=== PATIENT | male | born 1960 | race Caucasian/White ===

== ENCOUNTER 2017-09-12 05:25 | Day surgery (SDC) | payer OTHER ==
[2017-09-11 11:09] VITALS: BMI 48.0
[~2017-09-12] VITALS: Ht 182.9 cm; Wt 159.1 kg
[~2017-09-12 05:25] MED LIST: ASPI81TA28 PO; CIPR1TAB11 PO; GLUCTAB18 PO; METR-163 PO; MISCCAP80 PO; OMEG10007 PO; OXGN; OXYC-57 PO; POLY335019 PO; PSYL48.59 PO; TRAM-10 PO; VALA1TAB31 PO
[2017-09-12] MEDS ORDERED: MELO7.5T5 PO (05:50)
[2017-09-12 05:54] VITALS: BP 131/73; PULSE 79; TEMP 36.6; O2SAT 94; Ht 182.9 cm; Wt 159.1 kg
[2017-09-12] MEDS ORDERED: LACTATED RINGER'S 1000ML 1,000 ML IV SCH (06:00)
[2017-09-12] MEDS ORDERED: CEFAZOLIN 2000MG IV PUSH 10 ML IV SCH (06:00)
[2017-09-12] MEDS ORDERED: BACITRACIN OINT 15 GM TUBE ONE (06:44)
[2017-09-12] MEDS ORDERED: BUPIVACAINE 0.5 % 5 MG/1 ML MPF 30ML VIAL ONE (06:44)
[2017-09-12] MEDS ORDERED: LIDOCAINE HCL 1% 20 ML VIAL ONE (06:44)
--- NOTE | 2017-09-12 07:01 | History & Physical Bridge Note ---
H&P Re-Evaluation Bridge Note: I have examined the patient, reviewed the History & Physical and in the interval since the performance of the History & Physical I have noted the following changes of clinical significance: No changes noted
[2017-09-12] MEDS ORDERED: CEFAZOLIN SOD 3000MG/15 ML IV PUSH IV ONE (07:08)
[2017-09-12] MEDS ORDERED: ROCURONIUM BROMIDE 10 MG/ML 5 ML VIAL IV ONE (07:11)
[2017-09-12] MEDS ORDERED: PROPOFOL IV EMULSION 10 MG/ML 20 ML VIAL IV ONE (07:11)
[2017-09-12] MEDS ORDERED: MIDAZOLAM HCL 1 MG/ML 2ML VIAL ONE (07:11)
[2017-09-12] MEDS ORDERED: LIDOCAINE HCL 2% 2 ML VIAL (20MG/ML) ONE (07:11)
[2017-09-12] MEDS ORDERED: FENTANYL CITRATE INJ 50 MCG/1 ML 2 ML VIAL ONE (07:12)
[2017-09-12] MEDS ORDERED: PROMETHAZINE HCL INJ 12.5 MG in SODIUM CHLORIDE 0.9% 50ML 50 ML IV PRN (08:30)
[2017-09-12] MEDS ORDERED: NALOXONE HCL 0.4 MG/1 ML VIAL/CARP IV PRN (08:30)
[2017-09-12] MEDS ORDERED: ATROPINE SULFATE 0.1 MG/ML 5ML SYR IV PRN (08:30)
[2017-09-12] MEDS ORDERED: ONDANSETRON INJ 2 MG/ML 2 ML VIAL IV PRN ×2 (08:30→09:15)
[2017-09-12] MEDS ORDERED: FLUMAZENIL 0.1 MG/1 ML 10 ML VIAL IV PRN (08:30)
[2017-09-12] MEDS ORDERED: EpHEDrine SULFATE INJ 50 MG/ML AMP IV PRN (08:30)
[2017-09-12] MEDS ORDERED: LABETALOL HCL IV 5 MG/ML 20ML IV PRN (08:30)
[2017-09-12] MEDS ORDERED: DEXAMETHASONE SOD INJ 4 MG/ML VIAL ONE (08:50)
[2017-09-12] MEDS ORDERED: GLYCOPYRROLATE INJ 0.2 MG/ML VIAL ONE (08:50)
[2017-09-12] MEDS ORDERED: NEOSTIGMINE METHYLSULFATE 5 MG/5 ML SYR ONE (08:50)
[2017-09-12] MEDS ORDERED: SUCCINYLCHOLINE 100MG/5ML SYR IV ONE (08:50)
[2017-09-12] MEDS ORDERED: ONDANSETRON INJ 2 MG/ML 2 ML VIAL ONE (08:50)
[2017-09-12] MEDS ORDERED: EpHEDrine SULFATE 50MG/5ML SYR ONE (08:50)
--- NOTE | 2017-09-12 08:58 | [facility] Post Operative Brief Note ---
Immediate Operative Summary Operative Date Sep 12, 2017. Pre-Operative Diagnosis chronic cholecystitis, Cholelithiasis Post-Operative Diagnosis chronic cholecystitis, Cholelithiasis Procedure(s) Performed Laparoscopic Cholecystectomy Surgeon Dr. Arriaga Sericulture Teacher Surgeon(s) Tatiana Andrea PA-C Estimated Blood Loss 5ml Findings chronic cholecystitis Fluids (cc crystalloids) 500ml Specimens A: Gallbladder Drains none Anesthesia general Complication(s) None Disposition Recovery Room / PACU
[2017-09-12] MEDS ORDERED: OXYC-57 PO (09:08)
--- NOTE | 2017-09-12 09:14 | Discharge Instructions ---
Discharge Instructions Date of Service Sep 12, 2017. Admission Reason for Admission: Cholelithiasis Discharge Discharge Diagnosis / Problem: history of gallstone pancreatitis/cholangitis, cholelithaisis Discharge Goals Goal(s): Decrease discomfort, Improve function Activity Recommendations Activity Limitations: as noted below No heavy lifting over 20 pounds for 4 weeks No strenuous activity until cleared by surgeon No submerging incisions underwater for 2 weeks (no bathing, swimming, or hot tubs) No driving while taking narcotic pain medication or until you are pain free . Instructions / Follow-Up Instructions / Follow-Up You may shower in 3 days and then remove outer dressings, sponge bath and wash hair in meantime Leave steri strips on incisions for 7 days and then remove You do not need to keep dressing on incisions unless there is drainage walking and light activity is encouraged Follow-up [address] Arriaga, please call office at [phone] to make an appointment if you do not already have one You will be given PO Percocet as needed for pain, may take extra strength Tylenol/Ibuprofen as needed for pain however do not mix Tylenol in between Percocet as Percocet already has Tylenol in it. Current Hospital Diet Patient's current hospital diet: Discharge Diet Recommended Diet: Regular Diet Procedures Procedures Performed: Laparoscopic Cholecystectomy Pending Studies Studies pending at discharge: yes List of pending studies: Gallbladder pathology to be reviewed at follow-up visit Medical Emergencies . Who to Call and When: Medical Emergencies: If at any time you feel your situation is an emergency, please call 911 immediately. . Non-Emergent Contact Non-Emergency issues call your: Primary Care Provider, Surgeon Call Non-Emergent contact if: you have a fever, temperature is above 101, your pain is not controlled, your pain is worsening, your pain is unusual for you, wound has increased drainage, wound has increased redness, wound has increased pain . "Provider Documentation" section prepared by Katherin Andrea. . VTE Core Measure Inpt VTE Proph given/why not?: SCD's [place] Drug Monitoring Program Search Results: patient reviewed within database, no issues identified
[2017-09-12] MEDS ORDERED: MoRPHine SULFATE 2 MG/ML CARP IV PRN ×2 (09:15)
[2017-09-12] MEDS ORDERED: MoRPHine SULFATE 4 MG/ML 1 ML CARP\\VIAL IV PRN (09:15)
[2017-09-12] MEDS ORDERED: OXYCODONE/ACETAMINOPHEN 5-325 TAB PO PRN ×2 (09:15)
[2017-09-12] MEDS: FENTANYL CITRATE INJ 50 MCG/1 ML 2 ML VIAL IV PRN ×2 (09:21→09:27)
--- NOTE | 2017-09-12 09:21 | OPERATIVE REPORT ---
DATE OF OPERATION: 09/12/2017 PREOPERATIVE DIAGNOSIS: Chronic cholecystitis, cholelithiasis. POSTOPERATIVE DIAGNOSIS: Same. PROCEDURE: Laparoscopic cholecystectomy. SURGEON: Dr. Lindsay Arriaga. CHANNEL SUPERVISOR: Katherin Andrea PA-C. ANESTHESIA: General. ESTIMATED BLOOD LOSS: About 5 mL. FINDINGS: Chronic cholecystitis, cholelithiasis. COMPLICATIONS: None. INDICATIONS FOR THE PROCEDURE: This is a 57-year-old gentleman who presented with pancreatitis, possible gallstone and now patient pancreatitis is recovered and now patient required to do laparoscopic cholecystectomy, possible open, possible cholangiogram. I did talk to the patient about the benefit and risk, alternate procedure. I indicated the risks may include but not limited such as bleeding, infection, injury to common bile duct, injury to bowel, myocardial infarction, DVT, even . The patient understands. He signed informed consent and I answered all questions. OPERATION AND FINDINGS: DETAILS OF PROCEDURE: We brought the patient to the OR, put the patient in the supine position. The patient received SCD on bilateral legs to prevent DVT. Also, patient received 2 grams Ancef IV for prophylactic antibiotic. The patient received general anesthesia without difficulty. The abdomen was prepped and draped in routine sterile fashion. After a timeout, I injected local anesthesia by using 1% lidocaine mixed with 0.5% Marcaine just above the umbilical. Then I made a small incision just above umbilical, opened fascia and opened peritoneum under direct vision. I put a Dorita trocar in, connected to CO2 to create pneumoperitoneum. Flow rate is 6 liter per minute. Pressure not more than 14 mmHg. Once we get a nice pneumoperitoneum, we put the camera in looked around the abdomen showing normal finding on the stomach, small bowel, large bowel and liver; however, the gallbladder showing chronic cholecystitis, gallbladder wall thickening, edema. Then, we put another 3.5 mm trocar on the right upper quadrant. Once all trocars in I put grasper in to hold the base of the gallbladder, put direction to the diaphragm and put another grasper in to hold the pouch of the gallbladder, put latter to expose the triangle of Calot. The cystic duct was identified and mobilized. I put two 5 mm metal clips on the proximal cystic duct, 1 on the distal cystic duct. I then used scissor transection the cystic duct. Then the cystic artery was identified and mobilized. I put two 5 mm metal clips on the proximal cystic arterial, 1 on the distal artery, then I used scissor transection the cystic artery. Rechecked no active bleeding, no bile leak. Then I used Bovie to take down the gallbladder from the liver bed without difficulty. Then we pulled out the gallbladder through the catch bag then we reinserted Dorita trocar in, connected to CO2 to create pneumoperitoneum. Again and looked around the abdomen shows no bile leak and no active bleeding from the liver bed and then we removed all trocar under direct vision. No active bleeding from trocar sites. The pneumoperitoneum was released. Then I closed the umbilical incision, fascial layer by using #1 Vicryl [id number] x2 and closed subcutaneous layer by using 2-0 Vicryl interrupted and closed skin by using 4-0 Vicryl continuous running. Then I closed another 3.5 mm trocar site skin only by using 4-0 Vicryl. Then we put the dressing on. The patient tolerated the procedure well. All the instrument, needle and sponge count correct x2 at the end of the case. The specimen sent to pathology and the patient transferred to recovery room in stable condition. After the procedure, I did talk to the patient's and the patient's daughter about the OR finding and procedure we did, they understand. I attest to the content of the Intraoperative Record and any orders documented therein. Any exception s are noted below.
[2017-09-12 09:50] VITALS: BP 120/65; PULSE 67; TEMP 37.3; O2SAT 93
--- NOTE | 2017-09-12 09:51 | Anesthesiology Progress Note ---
Anesthesia Post Op Note Date & Time Sep 12, 2017 at 09:50 Vital Signs Pain Intensity: 0 Vital Signs Past 12 Hours Date Time Temp Pulse Resp B/P (MAP) Pulse Ox O2 Delivery O2 Flow Rate FiO2 09/12/17 09:42 67 16 97 09/12/17 09:42 67 16 09/12/17 09:41 123/63 09/12/17 09:37 74 13 09/12/17 09:37 72 13 95 09/12/17 09:36 113/62 09/12/17 09:32 73 16 09/12/17 09:32 74 16 92 09/12/17 09:31 124/54 09/12/17 09:27 74 14 09/12/17 09:27 74 14 94 09/12/17 09:26 78 14 132/50 92 09/12/17 09:26 75 14 09/12/17 09:21 69 19 93 09/12/17 09:21 68 19 09/12/17 09:20 130/61 09/12/17 09:16 73 16 09/12/17 09:16 73 16 95 09/12/17 09:15 124/62 09/12/17 09:11 71 22 09/12/17 09:11 71 22 127/69 92 09/12/17 09:07 110/63 09/12/17 09:06 36.3 75 18 110/63 94 Oxymask 10 09/12/17 05:54 36.6 79 20 131/73 (92) 94 Room Air Notes Mental Status: alert / awake / arousable, participated in evaluation Pt Amnestic to Procedure: Yes Nausea / Vomiting: adequately controlled Pain: adequately controlled Airway Patency, RR, SpO2: stable & adequate BP & HR: stable & adequate Hydration State: stable & adequate Anesthetic Complications: no major complications apparent
[2017-09-12 10:20] VITALS: BP 135/75; PULSE 79; O2SAT 92
[2017-09-12 11:05] VITALS: BP 132/69; PULSE 77; TEMP 37; O2SAT 92
[2017-09-13] MEDS ORDERED: CEFAZOLIN SOD 2000MG/10 ML IV PUSH IV ONE (06:00)
== END 2017-09-12 11:10 | disposition home or self-care (01) ==
LOC: C.ACU 05:25
PROVIDERS: ATTEND Surgery
DX: K80.10 Calculus of gallbladder with chronic cholecystitis without obstruction (principal); F17.200 Nicotine dependence, unspecified, uncomplicated

== ENCOUNTER 2017-11-03 10:24 | Day surgery (SDC) | payer OTHER ==
[2017-10-20 08:04] VITALS: BMI 48.0
[~2017-11-03] VITALS: Ht 182.9 cm; Wt 159.1 kg
[~2017-11-03 10:24] MED LIST changes: +ATROPINE SULFATE 0.1 MG/ML 5ML SYR IV PRN; -CIPR1TAB11 PO; +EpHEDrine SULFATE INJ 50 MG/ML AMP IV PRN; +FENTANYL CITRATE INJ 50 MCG/1 ML 2 ML VIAL IV PRN; +LACTATED RINGER'S 1000ML 1,000 ML IV SCH; +MELO7.5T5 PO; -METR-163 PO; +ONDANSETRON INJ 2 MG/ML 2 ML VIAL IV PRN; -OXYC-57 PO; +PSEU1TAB67 PO
[2017-11-03] MEDS ORDERED: INDOMETHACIN 50 MG SUPP PR ONE (10:30)
[2017-11-03] MEDS ORDERED: LACTATED RINGER'S 1000ML 1,000 ML IV SCH ×2 (10:30→11:30)
[2017-11-03 10:55] VITALS: BP 139/80; PULSE 81; TEMP 36.9; O2SAT 95; Ht 182.9 cm; Wt 159.1 kg
[2017-11-03] MEDS ORDERED: FENTANYL CITRATE INJ 50 MCG/1 ML 2 ML VIAL ONE (11:34)
[2017-11-03] MEDS ORDERED: MIDAZOLAM HCL 1 MG/ML 2ML VIAL ONE (11:34)
--- NOTE | 2017-11-03 12:14 | Endo History and Physical ---
History & Physical Date of Service: Nov 03, 2017. Chief Complaint: follow-up for gallstones / cholangitis Referring Physician: History of Present Illness The patient presents today for ERCP. He had undergone an ERCP about 2 months ago after he presented with cholangitis. The patient reports that he is almost back to his usual state of health since cholecystectomy was performed. Past Medical History Arthritis, Gastrointestinal Disorder, Sleep Apnea, Other Past Surgical History Hx Cardiac Surgery: No Hx Internal Defibrillator: No Hx Pacemaker: No Hx Abdominal Surgery: Yes (EXPLORATORY LAP/REMOVAL PART BLADDER/BOWEL RESECTION-FISTULA TRACT) Hx Post-Op Nausea and Vomiting: No Hx Cancer Surgery: No Hx Thoracic Surgery: No Hx Orthopedic: Yes (LT RCR, LT/RT KNEE SCOPES) Hx Urinary Tract Surgery: No Social History Smoking Status: Light Tobacco Smoker Hx Substance Use: No Hx Alcohol Use: Yes (1-2 DRINKS/WEEK) Allergies Coded Allergies: No Known Allergies (Verified , 11/03/17) Current Medications Reported Home Medications Medications Dose Route/Sig Max Daily Dose Days Date Category Pseudoephedrine Hcl Er (Pseudoephedrine Hcl) 120 Mg Tab 1 Tab PO BID PRN 10/20/17 Reported Mobic (Meloxicam) 7.5 Mg Tab 7.5 Mg PO DAILY 09/12/17 Reported Ultram (Tramadol HCl) 50 Mg Tab 50 Mg PO Q4H PRN 09/11/17 Reported Miralax (Polyethylene Glycol 3350) 1 Pow Pow 17 Gm PO QAM 09/11/17 Reported Probiotic (Probiotic Product) 1 Cap Cap 1 Cap PO QAM 09/01/17 Reported [place]-3 (Fish Oil) 1 Ea Cap 2 Cap PO QAM 09/01/17 Reported Metamucil (Psyllium) 48.57 % Pow 2 Tbs PO QAM 09/01/17 Reported Oxygen Gas 2 Liters NA HS THROUGH CPAP MASK 06/02/14 Reported Valtrex (Valacyclovir Hcl) 1 Gm Tab 1 Gm PO BID PRN 06/02/14 Reported Osteo Bi-Flex Regular Str (Glucosamine-Chondroitin) 1 Tab Tab 2 Tab PO QAM 05/02/13 Reported Aspirin Ec (Aspirin) 81 Mg Tab 81 Mg PO QAM 05/02/13 Reported Vital Signs Weight (Kilograms): 159.09 Height (Feet): 6 Height (Inches): 0 Date Time Temp Pulse Resp B/P (MAP) Pulse Ox O2 Delivery O2 Flow Rate FiO2 11/03/17 10:55 36.9 81 20 139/80 (99) 95 Room Air Physical Exam General Appearance: no apparent distress Respiratory/Chest: Auscultation: breath sounds normal Cardiovascular: Heart Auscultation: RRR Abdomen: Inspection & Palpation: soft Assessment and Plan ERCP for biliary stent removal. We are planning to do a repeat cholangiogram to evaluate for evidence of retained common bile duct stones. We've discussed the risks to include bleeding, infection, perforation, pancreatitis and failed cannulation.
[2017-11-03] MEDS ORDERED: SUCCINYLCHOLINE CHLORIDE 20 MG/ML 10 ML VIAL IV ONE (12:56)
[2017-11-03] MEDS ORDERED: ONDANSETRON INJ 2 MG/ML 2 ML VIAL ONE (12:56)
[2017-11-03] MEDS ORDERED: DEXAMETHASONE SOD INJ 4 MG/ML VIAL ONE (12:56)
[2017-11-03] MEDS ORDERED: PROPOFOL IV EMULSION 10 MG/ML 20 ML VIAL IV ONE ×2 (12:56→12:57)
[2017-11-03] MEDS ORDERED: ROCURONIUM BROMIDE 10 MG/ML 5 ML VIAL IV ONE (12:56)
[2017-11-03] MEDS ORDERED: LIDOCAINE HCL 2% 2 ML VIAL (20MG/ML) ONE (12:56)
--- NOTE | 2017-11-03 12:57 | [facility] Post Operative Brief Note ---
Immediate Operative Summary Operative Date Nov 03, 2017. Pre-Operative Diagnosis History of cholangitis Post-Operative Diagnosis Biliary sludge Procedure(s) Performed Endoscopic Retrograde Cholangiopancreatogram, Stent Removal Surgeon Dr. Nadeen Minor Supervisory Investigative Specialist Surgeon(s) none Estimated Blood Loss 0 cc Findings Consistent with Post-Op Diagnosis Specimens All specimens handled by Endoscopic staff Drains None Anesthesia Type General Complication(s) none Disposition Accompanied Pt To Recover: no Disposition: Recovery Room / PACU
[2017-11-03] MEDS ORDERED: ONDANSETRON INJ 2 MG/ML 2 ML VIAL IV PRN (13:00)
--- NOTE | 2017-11-03 13:03 | Discharge Instructions ---
Endoscopy Patient Instructions Date / Procedure(s) Performed Nov 03, 2017. ERCP Allergy Information Coded Allergies: No Known Allergies (Verified , 11/03/17) Discharge Date / Findings Nov 03, 2017. Biliary sludge Biliary stent removed Medication Instructions Reported Home Medications Medications Dose Route/Sig Max Daily Dose Days Date Category Pseudoephedrine Hcl Er (Pseudoephedrine Hcl) 120 Mg Tab 1 Tab PO BID PRN 10/20/17 Reported Mobic (Meloxicam) 7.5 Mg Tab 7.5 Mg PO DAILY 09/12/17 Reported Ultram (Tramadol HCl) 50 Mg Tab 50 Mg PO Q4H PRN 09/11/17 Reported Miralax (Polyethylene Glycol 3350) 1 Pow Pow 17 Gm PO QAM 09/11/17 Reported Probiotic (Probiotic Product) 1 Cap Cap 1 Cap PO QAM 09/01/17 Reported [place]-3 (Fish Oil) 1 Ea Cap 2 Cap PO QAM 09/01/17 Reported Metamucil (Psyllium) 48.57 % Pow 2 Tbs PO QAM 09/01/17 Reported Oxygen Gas 2 Liters NA HS THROUGH CPAP MASK 06/02/14 Reported Valtrex (Valacyclovir Hcl) 1 Gm Tab 1 Gm PO BID PRN 06/02/14 Reported Osteo Bi-Flex Regular Str (Glucosamine-Chondroitin) 1 Tab Tab 2 Tab PO QAM 05/02/13 Reported Aspirin Ec (Aspirin) 81 Mg Tab 81 Mg PO QAM 05/02/13 Reported Provider Instructions Activity Restrictions - No exercising or heavy lifting for 24 hours. - Do not drink alcohol the day of the procedure. - Do not drive a car or operate machinery until the day after the procedure. - Do not make any important decisions or sign important papers in 24 hours after the procedure. Following Day: - Return to full activity which may include returning to work/school. Diet Clear Liquid diet today Regular diet on 11/04/17 Treatment For Common After Affects For mild abdominal pain, bloating, or excessive gas: - Rest - Eat lightly - Lie on right side Follow-Up Information Follow-up with Dr. Minor as needed Anesthesia Information What You Should Know You have had a procedure that required some medicine to reduce anxiety and discomfort. This treatment is called moderate sedation. After receiving the treatment, you may be sleepy, but you will be able to breathe on your own. The effects of the treatment may last for several hours. Follow these instructions along with Activity/Diet recommendations noted above: * Do NOT do anything where dizziness or clumsiness would be dangerous. * Rest quietly at home today, then you can be up and about tomorrow. * Have a responsible person stay with you the rest of today. * You may have had an I.V. today. If so, you may take the dressing off later today. Recommendations Call your doctor if: * Trouble breathing * Continuous vomiting for more than 24 hours * Temperature above 101 degrees * Severe abdominal pain or bloating * Pain not relieved by pain medicine ordered * There is increased drainage or redness from any incision * A large amount of rectal bleeding greater than 2-3 tablespoons. (If you had a polyp/s removed or have hemorrhoids, a small amount of blood - from the rectum is to be expected.) * You have any unanswered questions or concerns. IN THE EVENT OF A SERIOUS EMERGENCY, GO TO THE NEAREST EMERGENCY ROOM Your discharge instructions were prepared by provider Nadeen Minor. Patient Instructions Signature Page Elmer Arciniega Patient (or Guardian) Signature/Date: I have read and understand the instructions given to me by my caregivers. Caregiver/RN/Doctor Signature/Date: The above-named patient and/or guardian has received patient instructions on this date. + Original Patient Signature Page (only) stays with chart. Please make copy for patient.
--- NOTE | 2017-11-03 13:07 | GI REPORT ---
Procedure Date: 11/03/2017 12:25 PM Procedure: ERCP Indications: Follow-up of bile duct stone(s), Follow-up of ascending cholangitis, Stent removal Medicines: General Anesthesia Complications: No immediate complications. Estimated blood loss: Minimal. Estimated Blood Loss: Estimated blood loss was minimal. Procedure: Pre-Anesthesia Assessment: - Prior to the procedure, a History and Physical was performed, and patient medications, allergies and sensitivities were reviewed. The patient's tolerance of previous anesthesia was reviewed. - The risks and benefits of the procedure and the sedation options and risks were discussed with the patient. All questions were answered and informed consent was obtained. - Patient identification and proposed procedure were verified prior to the procedure by the physician, the nurse and the counseling director. The procedure was verified in the procedure room. - Pre-procedure physical examination revealed no contraindications to sedation. - ASA Grade Assessment: III - A patient with severe systemic disease. - After reviewing the risks and benefits, the patient was deemed in satisfactory condition to undergo the procedure. - The anesthesia plan was to use general anesthesia. - Immediately prior to administration of medications, the patient was re-assessed for adequacy to receive sedatives. - The heart rate, respiratory rate, oxygen saturations, blood pressure, adequacy of pulmonary ventilation, and response to care were monitored throughout the procedure. - The physical status of the patient was re-assessed after the procedure. After obtaining informed consent, the scope was passed under direct vision. Throughout the procedure, the patient's blood pressure, pulse, and oxygen saturations were monitored continuously.The ERCP was accomplished without difficulty. The patient tolerated the procedure well. The Scope was introduced through the mouth, and advanced to the duodenum and used to inject contrast into the bile duct. Findings: A supervisor acoustical tile carpenters film of the abdomen was obtained. Surgical clips, consistent with a previous cholecystectomy, were seen in the area of the right upper quadrant of the abdomen. The esophagus was successfully intubated under direct vision without detailed examination of the pharynx, larynx, and associated structures, and upper GI tract. The upper GI tract was grossly normal. One biliary stent originating in the biliary tree was emerging from the major papilla. The stent was partially occluded. A biliary sphincterotomy had been performed. The sphincterotomy appeared open. One stent was removed from the biliary tree using a snare. The bile duct was deeply cannulated with the short-nosed traction sphincterotome (Omni 35) and 0.035 in Acrobat 2 guidewire. Contrast was injected. I personally interpreted the bile duct images. Contrast extended to the entire biliary tree. A cholecystectomy had been performed. The lower third of the main bile duct contained filling defect(s) thought to be sludge. The CBD was 7 to 8 mm in diameter. To discover objects, the biliary tree was swept with a 10 mm balloon starting at the bifurcation. Sludge was swept from the duct. Nothing remained on occlusion cholangiogram. The total fluoroscopy exposure time was 28 seconds. Indomethacin 100 mg was given via suppository to decrease the risk of post-ERCP pancreatitis (PEP). The endoscope was withdrawn from the patient. Impression: - One partially occluded stent from the biliary tree was seen in the major papilla. - Prior biliary sphincterotomy appeared open/prior biliary stent removed. - The biliary tree was swept and sludge was found. - Indomethacin given to decrease risk of post-ERCP pancreatitis. Recommendation: - Discharge patient to home (ambulatory). - Clear liquid diet today. - Observe patient's clinical course following today's ERCP with therapeutic intervention. - Return to my office PRN. Nadeen Minor D.O. Nadeen Minor, 11/03/2017 1:06:41 PM This report has been signed electronically. Note Initiated On: 11/03/2017 12:25 PM I attest to the content of the Intraoperative Record and orders documented therein, exceptions below
--- NOTE | 2017-11-03 13:25 | Anesthesiology Progress Note ---
Anesthesia Post Op Note Date & Time Nov 03, 2017 at 13:25 Vital Signs Pain Intensity: 0 Vital Signs Past 12 Hours Date Time Temp Pulse Resp B/P (MAP) Pulse Ox O2 Delivery O2 Flow Rate FiO2 11/03/17 13:20 85 16 137/93 92 Room Air 11/03/17 13:10 85 18 154/85 97 Oxymask 8 11/03/17 13:07 36 88 16 148/81 97 Oxymask 8 11/03/17 10:55 36.9 81 20 139/80 (99) 95 Room Air Notes Mental Status: alert / awake / arousable, participated in evaluation Pt Amnestic to Procedure: Yes Nausea / Vomiting: adequately controlled Pain: adequately controlled Airway Patency, RR, SpO2: stable & adequate BP & HR: stable & adequate Hydration State: stable & adequate Anesthetic Complications: no major complications apparent
[2017-11-03 13:57] VITALS: BP 101/55; PULSE 72; TEMP 36.1; O2SAT 97
[2017-11-03 14:21] VITALS: BP 112/63; PULSE 68; O2SAT 94
--- NOTE | 2017-11-03 14:48 | DIAGNOSTIC IMAGING REPORT ---
ERCP BILIARY DUCTAL CLINICAL HISTORY: EXPLORE DUCTS COMPARISON STUDY: ERCP September 03, [address] of the abdomen and pelvis September 04, 2017. FLUOROSCOPY TIME: 29 seconds. FINDINGS: 7 fluoroscopic images were submitted for interpretation. These images demonstrate cannulation of the common bile duct with balloon sweep through the common bile duct. No biliary ductal dilatation is identified. IMPRESSION: Fluoroscopic images from ERCP, as described above. Electronically signed by: Carlo Cartagena M.D. 11/03/2017 2:47 PM Dictated Date/Time: 11/03/2017 2:45 PM
== END 2017-11-03 15:25 | disposition home or self-care (01) ==
LOC: C.ACU 10:24
PROVIDERS: ATTEND Internal Medicine Gastroenterology
DX: Z09 Encounter for follow-up examination after completed treatment for conditions other than malignant neoplasm (principal); K83.0 Cholangitis; G47.33 Obstructive sleep apnea (adult) (pediatric); Z98.890 Other specified postprocedural states; F17.200 Nicotine dependence, unspecified, uncomplicated; Z79.82 Long term (current) use of aspirin; E66.01 Morbid (severe) obesity due to excess calories; Z68.42 Body mass index [BMI] 45.0-49.9, adult

== ENCOUNTER 2022-06-16 08:37 | Observation (INO) ==
--- NOTE | 2022-05-25 15:46 | PAT Medication Instructions ---
Medication Instructions Date of Service May 25, 2022 Home Medications glucosamine 750 ox-ewcajqxvfir-nto no1 644 mg-C 30 mg-lisha 1 mg tablet (Osteo Bi-Flex Triple Strength) 2 tab PO QAM lactobacillus combination no.4 3 billion cell capsule (Probiotic) 1 tab PO QAM omega 3,6,9 combination no.7 92 mg (43 mg-22 [id number]) chew tablet 2 tab PO QAM psyllium husk 3.4 gram/5.4 gram oral powder (Metamucil) 1 tbsp PO QAM valacyclovir 1 gram tablet (Valtrex) 1,000 mg PO BID PRN celecoxib 200 mg capsule (Celebrex) 100 mg PO QAM Continue as directed valacyclovir 1 gram tablet (Valtrex) 1,000 mg PO BID PRN(if needed) ASK your surgeon for instructions celecoxib 200 mg capsule (Celebrex) 100 mg PO QAM STOP taking 2 weeks before surgery glucosamine 750 ql-emmvvbhvwab-rvx no1 644 mg-C 30 mg-lisha 1 mg tablet (Osteo Bi-Flex Triple Strength) 2 tab PO QAM omega 3,6,9 combination no.7 92 mg (43 mg-22 [id number]) chew tablet 2 tab PO QAM DO NOT take the morning of surgery lactobacillus combination no.4 3 billion cell capsule (Probiotic) 1 tab PO QAM psyllium husk 3.4 gram/5.4 gram oral powder (Metamucil) 1 tbsp PO QAM Other Notes NOTHING TO EAT OR DRINK AFTER MIDNIGHT. If you have any questions please call us at [phone] or [phone] or [phone] or [phone]
--- NOTE | 2022-05-27 11:40 | Anesthesiology Consultation ---
Date of Service May 27, 2022 Assessment & Plan (1) Encounter for pre-operative examination: - PCP office visit (05/16/22): "medically optimized for TKA" - COVID screening: Per assessment on 05/24: No known COVID-19 positive contacts or current COVID-19 related symptoms. Travel screen negative x 2+ weeks. Patient vaccinated. At surgeon discretion if preop Covid testing being done. - S/P Right TKA (01/02/19): SAB at L3/4 x1 attempt + PNB at [facility]. No issue noted per post-op anesthesia progress note. - Outpatient joint assessment: Pt currently scheduled for inpatient pathway. If surgeon requests review for outpatient joint pathway, case would need to be reviewed with anesthesiologist for ultimate determination. Chart Review Chart Review: Acceptable Risk for Surgery and Patient seen in Pre Admission Testing Teaching & Discussion Pre-Anesthesia Teaching/Discussion Notes: Instructed NPO after midnight before surgery,except medications with 15 cc of water. Medication instructions provided according to the PAT guidelines. History Surgery Operation Date: 06/16/22 07:00 Proposed Procedures p Left Total Knee Arthroplasty - Alfredito Cavanaugh MD Height/Weight Height: 6 ft Weight: 163.8 kg Allergies Allergy/AdvReac Type Severity Reaction Status Date / Time No Known Allergies Allergy Unknown Verified 05/24/22 07:35 Medications Home Medications Medication Instructions Recorded Confirmed Last Taken glucosamine 750 vj-[id number] 2 tab PO QAM 12/14/18 05/24/22 09/15/20 no1 644 mg-C 30 mg-lisha 1 mg tablet (Osteo Bi-Flex Triple Strength) lactobacillus combination no.4 3 1 tab PO QAM 12/14/18 05/24/22 09/15/20 billion cell capsule (Probiotic) omega 3,6,9 combination no.7 92 mg 2 tab PO QAM 12/14/18 05/24/22 09/15/20 (43 mg-22 [id number]) chew tablet psyllium husk 3.4 gram/5.4 gram 1 tbsp PO QAM 12/14/18 05/24/22 09/14/20 oral powder (Metamucil) valacyclovir 1 gram tablet 1,000 mg PO BID PRN Cold Sores 12/14/18 05/24/22 Unknown (Valtrex) celecoxib 200 mg capsule (Celebrex) 100 mg PO QAM 09/09/20 05/24/22 09/15/20 07:30 Past Medical History Medical History Diverticular disease Gout Morbid obesity with BMI of 45.0-49.9, adult Osteoarthritis Sleep apnea CPAP (compliant) Exercise / Class Metabolic Activity II 4-5 Yardwork/Stairs/Walk up hill (one FS (no CP, no SOB)) Past Family History Family History Father Family history of diabetes mellitus Sister Family history of reaction to anesthesia difficulty waking Past Surgical History Surgical History History of arthroplasty of right knee Right TKA (01/02/19): SAB at L3/4 x1 attempt + PNB at [facility]. No issue noted per post-op anesthesia progress note. History of arthroscopy R/L knees History of bowel resection Partial bowel/bladder resection (diverticulitis/fistula) History of cholecystectomy History of colonoscopy History of ERCP History of repair of rotator cuff Left History of tooth extraction WTE Past Anesthesia History Sister- slow to wake Social History Smoking Status: Light tobacco smoker tobacco type: cigars (Occasional) Do You Dip or Chew Tobacco: No Hx Alcohol Use: Yes Alcohol type: beer, wine and hard liquor alcohol intake frequency: a few times a week Hx Substance Use: No substance use type: does not use Review of Systems Patient denies chest pain, shortness of breath, dyspnea on exertion, fever, chills, cough, wheezing, palpitations. Physical Exam Vital Signs VITALS BP 134/78 P 79 TEMP 98.5 SP02 95%RA RESP 16 PHYSICAL Full cervical extension range of motion. Full TMJ range of motion. TMD 3 finger breaths Mallampati Score 2 Dentition: intact, + 2 lower front crowns Lungs: clear throughout to auscultation Cardiac: regular rate and rhythm, no murmurs noted Spine: normal Carotid arteries: negative bruit Extremities: no edema Thick neck Lab Results Anesthesia Preop Results Results Anesthesia Widget: Na 137 mmol/L (136-145) 05/27/22 K 4.0 mmol/L (3.5-5.1) 05/27/22 Cl 105 mmol/L (98-107) 05/27/22 CO2 24 mmol/L (21-32) 05/27/22 BUN 14 mg/dl (6-23) 05/27/22 Creat 0.79 mg/dl (0.6-1.4) 05/27/22 Glucose Level 95 mg/dl (70-99(Fasting)) 05/27/22 PT 11.0 Seconds (9.0-12.0) 05/27/22 PTT 30.5 Seconds (21.0-31.0) 05/27/22 INR 1.0 (0.9-1.1) 05/27/22 Urine Color Yellow 05/27/22 Urine Appearance Clear (Clear) 05/27/22 Urine pH 5.0 (4.5-7.5) 05/27/22 Urine Specific [place] 1.022 (1.000-1.030) 05/27/22 Urine Protein Negative (Negative) 05/27/22 Urine Glucose (UA) Negative (Negative) 05/27/22 Urine Ketones 1+ (Negative) H 05/27/22 Urine Blood Negative (Negative) 05/27/22 Urine Nitrite Negative (Negative) 05/27/22 Urine Bilirubin Negative (Negative) 05/27/22 Urine Urobilinogen Negative (Negative) 05/27/22 Urine Leukocyte Esterase Negative (Negative) 05/27/22 Blood Type O Positive 05/27/22 Antibody Screen NEGATIVE 05/27/22 Testing Laboratory Results 05/16/22 WBC 11.0 H/H 16.2/48.0 PLATELETS 232 HGBA1C 5.6% Electrocardiogram Date: 05/27/22 Findings: + NSR @ (77) Chest X-Ray Date: 05/27/22 FINDINGS: Cardiomediastinal and hilar silhouettes are within normal limits. No pneumothorax, pleural effusion, airspace consolidation or overt pulmonary edema. Spondylitic spurring of the spine. IMPRESSION: No acute process.
--- NOTE | 2022-06-15 18:58 | History & Physical Report ---
Date of Service June 15, 2022 Assessment & Plan (1) Primary osteoarthritis of left knee: Plan: Treatment options discussed with the patient. He has failed conservative measures. He would like to proceed with surgical intervention. Risks, benefits and alternatives to surgery including but not limited to infection, DVT, pain, stiffness, need for revision surgery, damage to blood vessels, damage to nerves, PE, , were discussed with the patient and they wish to proceed. Plan on left total knee arthroplasty scheduled for Angelita Mooney on June [address] Cavanaugh. We will plan on outpatient PT postop. We will plan on Xarelto postop for DVT prophylaxis. All questions answered. Patient will follow-up postop. History of Present Illness Chief Complaint: Left knee pain Primary Care Provider: Jason Damico MD 62-year-old male with past medical history significant for NATAN, morbid obesity who presents with ongoing left knee pain. He has failed conservative measures. Pain interfering with his daily activities. Would like to proceed with left knee replacement. Patient denies headaches, sweats, fevers, chills, double vision, blurred vision, cough, sore throat, dysphagia, chest pain, sob, wheezing, n/v/d/c, numbness, tingling, fatigue, urinary symptoms, mood disorders. ROS positive for left knee pain and stiffness. Allergies Allergy/AdvReac Type Severity Reaction Status Date / Time No Known Allergies Allergy Unknown Verified 05/24/22 07:35 Home Medications Medication Instructions Recorded Confirmed Type glucosamine 750 at-afbncxcbuum-vln 2 tab PO QAM 12/14/18 05/24/22 History no1 644 mg-C 30 mg-lisha 1 mg tablet (Osteo Bi-Flex Triple Strength) lactobacillus combination no.4 3 1 tab PO QAM 12/14/18 05/24/22 History billion cell capsule (Probiotic) omega 3,6,9 combination no.7 92 mg 2 tab PO QAM 12/14/18 05/24/22 History (43 mg-22 [id number]) chew tablet psyllium husk 3.4 gram/5.4 gram 1 tbsp PO QAM 12/14/18 05/24/22 History oral powder (Metamucil) valacyclovir 1 gram tablet 1,000 mg PO BID PRN Cold Sores 12/14/18 05/24/22 History (Valtrex) celecoxib 200 mg capsule (Celebrex) 100 mg PO QAM 09/09/20 05/24/22 History Past Med/Surg History Medical History Diverticular disease Gout Morbid obesity with BMI of 45.0-49.9, adult Osteoarthritis Sleep apnea CPAP (compliant) Surgical History History of arthroplasty of right knee Right TKA (01/02/19): SAB at L3/4 x1 attempt + PNB at [facility]. No issue noted per post-op anesthesia progress note. History of arthroscopy R/L knees History of bowel resection Partial bowel/bladder resection (diverticulitis/fistula) History of cholecystectomy History of colonoscopy History of ERCP History of repair of rotator cuff Left History of tooth extraction WTE Family History Father Family history of diabetes mellitus Sister Family history of reaction to anesthesia difficulty waking Social History Smoking Status: Light tobacco smoker Second Hand Exposure: No; Hx Alcohol Use: Yes Alcohol type: beer, wine and hard liquor Hx Substance Use: No Preferred Language: Slovenian Communication Ability: Effective Waybill Clerk Required: No Beliefs That Will Affect Care: None marital status: Current Living Situation: Spouse Feels Safe at Home: Yes Assistive Devices: CPAP and Glasses Review of Systems All systems reviewed & are unremarkable except as noted in HPI & below Physical Exam Constitutional: well developed and well nourished; no acute distress Eyes: PERRL, conjunctivae normal, anicteric sclerae ENMT: external ear and nose normal, oropharynx normal Neck: trachea midline, no thyromegaly Respiratory: normal respiratory effort, lungs clear to auscultation Cardiovascular: RRR, no murmur, no edema Musculoskeletal: Left knee: Mild effusion. Medial and lateral joint line tenderness. Moderate crepitation. Positive Michael's. Positive anterior drawer. Stable to valgus and varus stress test. Range of motion 0 125 degrees. Skin: no rashes, warm and dry Neurologic: patellar DTR's 2+ bilat, sensation intact Psychiatric: A+Ox3, euthymic affect Results & Data ([facility]) Diagnostic Findings Left knee: End-stage osteoarthritis left knee with [id number]-[id number] articulation and marked subluxation. Tricompartmental arthritic changes. There are periarticular osteophyte formation and subchondral sclerosis
[~2022-06-16 08:37] MED LIST changes: +ACETAMINOPHEN 500 MG TAB PO SCH; -ASPI81TA28 PO; -ATROPINE SULFATE 0.1 MG/ML 5ML SYR IV PRN; +BUPIVACAINE 0.5 % 5 MG/1 ML MPF 30ML VIAL ONE; +CeleBREX 200 MG CAP PO SCH; -EpHEDrine SULFATE INJ 50 MG/ML AMP IV PRN; +FAMOTIDINE 20 MG TAB PO SCH; -FENTANYL CITRATE INJ 50 MCG/1 ML 2 ML VIAL IV PRN; +GABAPENTIN 600 MG DOSE PO SCH; -GLUCTAB18 PO; -LACTATED RINGER'S 1000ML 1,000 ML IV SCH; +LR 500ML BOLUS, THEN 15ML/HR IV SCH; -MELO7.5T5 PO; +METOCLOPRAMIDE HCL 10 MG TABLET PO SCH; -MISCCAP80 PO; -OMEG10007 PO; -ONDANSETRON INJ 2 MG/ML 2 ML VIAL IV PRN; -OXGN; -POLY335019 PO; -PSEU1TAB67 PO; -PSYL48.59 PO; +ROPIVACAINE 0.5% 5 MG/ML 30 ML VIAL ONE; +ROPIVACAINE 0.5% HCL/PF 150 MG, BUPIVACAINE 0.75% MPF 20 ML, EPINEPHrine 30MG/30ML (OR ... INFIL SCH; -TRAM-10 PO; +TRANEXAMIC ACID 1,000 MG **IV Intra-op IV SCH; +TRANEXAMIC ACID 1,000 MG **IV Pre-op IV SCH; -VALA1TAB31 PO; +dexAMETHasone 4 MG TAB PO SCH
[2022-06-16] MEDS ORDERED: MIDAZOLAM HCL 1 MG/ML 2ML VIAL ONE ×2 (08:56)
[2022-06-16] MEDS ORDERED: fentaNYL citrate 100 MCG/2 ML VIAL ONE (08:56)
--- NOTE | 2022-06-16 09:06 | History & Physical Bridge Note ---
Date of Service June 16, 2022 History & Physical Bridge Note I have examined the patient, reviewed the History & Physical and in the interval since the performance of the History & Physical I have noted the following changes of clinical significance: no changes noted
[2022-06-16] MEDS ORDERED: ORTHO JOINT ANESTHETIC ONE (09:45)
[2022-06-16] MEDS ORDERED: fentaNYL citrate 100 MCG/2 ML VIAL IV PRN (10:06)
[2022-06-16] MEDS ORDERED: ePHEDrine sulfate 50 MG/ML AMP IV PRN (10:06)
[2022-06-16] MEDS ORDERED: ONDANSETRON INJ 2 MG/ML 2 ML VIAL IV PRN ×2 (10:06→14:46)
[2022-06-16] MEDS ORDERED: ATROPINE SULFATE 0.1 MG/ML 10ML SYR IV PRN (10:06)
[2022-06-16] MEDS ORDERED: ePHEDrine sulfate 50 MG/ML AMP ONE (11:27)
[2022-06-16] MEDS ORDERED: KETAMINE 50 MG/5 ML SYRINGE ONE (11:30)
[2022-06-16] MEDS ORDERED: PROPOFOL IV EMULSION 10 MG/ML 20 ML VIAL IV ONE ×2 (12:08→13:50)
--- NOTE | 2022-06-16 13:14 | Operative Report ---
Post Operative Report Pre & Post Diagnosis Operation Date: 06/16/22 11:10 Pre-Op Diagnosis: Primary Osteoarthritis of Left Knee, morbid obesity BMI 48.7 Post-Op Diagnosis: Primary Osteoarthritis of Left Knee, moderate obesity BMI 48.7 I identified the patient and participated in the time-out.: Yes Procedure Operation Date: 06/16/22 11:10 Actual Procedures p Left Total Knee Arthroplasty(Left), lateral release, application superficial wound VAC, increased difficulty more obesity BMI 40.7- Alfredito Cavanaugh MD Surgeon Alfredito Cavanaugh MD Ultrasonic Tester Kristofer VIDAL Estimated Blood Loss 5 Findings Consistent with Post-Op Diagnosis Specimens Bone cuts Drains 2 Hemovac Anesthesia Type MAC Spinal Regional Complications none Disposition Disposition: Recovery Room Indications 62-year-old male with severe chronic left knee osteoarthritis extensive conservative management. Patient had a successful right knee replacement 2018. Now presents for left knee replacement. Description of Procedure The patient was taken to the operating room and anesthetized under spinal MAC regional block. Patient was placed supine on the the operating table. A pneumatic tourniquet was placed about the left obese upper thigh. The knee exam demonstrated neutral alignment severe [id number] crepitation moderately large effusion some varus valgus instability due to bone loss range of motion 0 through 125 degrees obesity the upper thigh and knee. The involved leg was elevated exsanguinated with Esmarch bandage and the pneumatic tourniquet was raised to 350 millimeters mercury. A longitudinal incision was made across the anterior knee. Skin flaps were elevated. An incision was made into the medial retinaculum and extended up into the mid third of the quadriceps tendon and extended down to the tibial tubercle. Intra-articular findings demonstrated severe tricompartmental osteoarthritis with notch osteophytes extending all the way across the notch with eburnated ridged bone medial and lateral femoral condyles medial and lateral tibia and patella with lateral tracking patella. Also jcrt-us-[id number] eburnated bone with some bone loss on the patella. There were massive tricompartmental osteophytes loose bodies within the joint with some scarred to the quadriceps tendon and some loose in the posterior compartment of the knee. All of the loose bodies were resected some partial synovectomy was performed. The knee was exposed by excising the posterior cruciate ligament and meniscal remnants. The infrapatellar fat pad was resected. The fat pad over the anterior femur at the upper aspect of the articular surface was resected for placement of the component in that area. A subperiosteal peel lateral release was performed around the patella. The [employer] Nephew journey 2.0 total knee arthroplasty system was utilized for the procedure. The drill hole was placed into the intramedullary canal and guide ritu was placed and distal femoral cut was adjusted to resect a standard cut and a 5 degree valgus cut. Sizing guide demonstrated size 7 was appropriate size and this corresponded to her preoperative templating. The distal femoral cut was made. The size 7, 5 in 1 cutting block was placed. The anterior posterior and chamfer cuts were made. The knee was extended and a free hand cut technique was performed to the patella. The patella with was measured and the width was reproduced using a 35 mm symmetrical patella component. 3 drill holes are made for the patella component pegs. The tibia was then subluxed and the external tibial cutting guide was adjusted to make a perpendicular cut to the long axis of the tibia and placing some slope matching the patient's slope on the cut. This was pinned in position and the proximal tibial cut was made with the oscillating saw. Lamina cs associate was placed and extension flexion gaps were balanced requiring some minor medial releases only. All posterior osteophytes were resected meniscal remnants resected remainder the PCL resected at this time. The size 6 left tibial trial was externally rotated in line with the tibial tubercle and pinned in position. The punch for the stem was used. The femoral trial was inserted and centered the notch cutting devices were used and the collet was placed. Tibial trials were used for the insert. The size 15 posterior stabilized trial gave balanced ligaments through full range of motion. Patella tracking was assessed with range of motion. The patella tracked centrally in flexion but there was some J tracking still also I did a lateral release leaving the synovium intact which improved patellar tracking.. The trials were removed. The Orthomix anesthetic cocktail was injected per protocol. The cut bone surfaces and soft tissue were copiously irrigated with pulsatile lavage saline solution. The final components were cemented with Simplex cement. The final components were Andrea [employer] Nephew journey 2.0 size 7 left femur, size 6 left tibia, 15 mm left posterior stabilized polyethylene insert, 35 symmetrical patella.. After the cement cured, the Betadine soak was used for 3 minutes. The knee was then copiously irrigated with pulsatile lavage saline solution. 2 drains were brought out laterally connected to Hemovac. The quadriceps tendon and medial retinaculum were closed with interrupted [id number] #1 Vicryl sutures. The knee was taken through full range of motion and repair was secure. Knee range of motion was 0 through 130 degrees and there was good stability through full range of motion.. the subcutaneous tissues were closed with 2-0 Vicryl sutures. The skin was closed with johanna. A pedro and Acticoat superficial wound VAC was applied. The tourniquet was let down and the patient had good capillary refill to the extremity. The patient tolerated the procedure well. My physician assistant press operator Kristofer VIDAL participated as patient care assistant and was integral part in all aspects of the procedure including prepping, draping, leg positioning, soft tissue retraction, instrument management and assisted in the closure , application of superficial wound VAC and will participate in postoperative care the patient. There was increased level difficulty due to the severity of the arthritis and his obesity increasing the time procedure by 30 minutes. I attest to the content of the Intraoperative Record and any orders documented therein. Any exceptions are noted below.
--- NOTE | 2022-06-16 14:20 | XRay Report ---
XR knee LT 1 or 2V routine HISTORY: 62 years-old Male Surgical Post Op [knee total joint arthroplasty COMPARISON: None TECHNIQUE: 2 views of the left knee FINDINGS: Total joint arthroplasty with patellar resurfacing. Anterior midline skin johanna are noted along wit h expected postoperative soft tissue swelling and deep tissue air with surgical drainage catheter. No acute fracture, alignment or unexpected opaque foreign body. IMPRESSION: Total joint arthroplasty with expected postoperative changes. ACT 112: Negative or not required by law. The above report was generated using voice recognition software. It may contain grammatical, syntax o r spelling errors. Electronically signed by: Pedro Marin M.D. 06/16/2022 2:19 PM
[2022-06-16] MEDS ORDERED: METOCLOPRAMIDE HCL INJ 5 MG/ML 2 ML VIAL IV PRN (14:46)
[2022-06-16] MEDS ORDERED: bisacodyL 10 MG SUPP PR PRN (14:46)
[2022-06-16] MEDS ORDERED: NALOXONE HCL 0.4 MG/1 ML VIAL/CARP IV PRN (14:46)
[2022-06-16] MEDS ORDERED: HYDROmorphone INJ 0.5 MG/0.5 ML SYR IV PRN (14:46)
[2022-06-16] MEDS ORDERED: TAMSULOSIN HCL 0.4 MG CAP PO PRN (14:46)
[2022-06-16] MEDS ORDERED: MAGNESIUM HYDROXIDE SUSP 30 ML UDC PO PRN (14:46)
[2022-06-16] MEDS: ACETAMINOPHEN 500 MG TAB PO SCH ×2 (15:00→22:26)
[2022-06-16] MEDS: SODIUM CHLORIDE 0.9% 1000ML 1,000 ML IV SCH (15:00)
--- NOTE | 2022-06-16 15:52 | Anesthesiology Progress Note ---
Date of Service June 16, 2022 Anesthesia Post Procedure Vital Signs Vital Signs: Temp Pulse Pulse Pulse Resp BP Pulse Ox 06/16/22 15:36 98.1 F 82 17 104/68 94 06/16/22 15:14 06/16/22 15:05 98.2 F 74 16 102/63 94 06/16/22 14:00 98.4 F 74 16 103/65 93 06/16/22 14:25 97.3 F L 72 19 112/62 93 06/16/22 14:05 81 17 104/59 L 94 06/16/22 13:58 97.2 F L 77 17 116/75 93 06/16/22 14:15 76 18 107/64 93 06/16/22 09:09 98.4 F 83 18 109/61 98 O2 Del Method 06/16/22 15:36 Room Air 06/16/22 15:14 Room Air 06/16/22 15:05 Room Air 06/16/22 14:00 Room Air 06/16/22 14:25 Room Air 06/16/22 14:05 Room Air 06/16/22 13:58 Room Air 06/16/22 14:15 Room Air 06/16/22 09:09 Room Air Pain Intensity Left Knee: Pain Intensity: 4 Transfer of Care Handoff Completed per policy Notes Mental Status: alert / awake / arousable and participated in evaluation Patient Amnestic to Procedure: Yes Nausea / Vomiting: adequately controlled Pain: adequately controlled Airway Patency, RR, SpO2: stable & adequate BP & HR: stable & adequate Hydration State: stable & adequate Neuraxial Anesthesia: was administered and sensory block is resolving Anesthetic Complications: no major complications apparent and Pt Satisfied with anesthetic care
--- NOTE | 2022-06-16 17:04 | Consultation ---
Date of Consultation June 16, 2022 Assessment & Plan (1) Primary osteoarthritis of left knee: (2) Sleep apnea: (3) Morbid obesity with BMI of 45.0-49.9, adult: Plan This is a 62-year-old male who has significant past medical history of HLD, NATAN on CPAP, chronic low back pain, bilateral sensorineural hearing loss who presents for elective left total knee arthroplasty by Dr. Cavanaugh. Primary OADJD of L knee s/p L TKA by DR. Cavanaugh, POD #0 ebl 5ml tolerated procedure well Pain/wound management per orthopedics Activity and therapy as prescribed by Ortho Encourage incentive spirometry Monitor hemoglobin, preop 16.2 NATAN CPAP at bedtime Morbid obesity, BMI 48.7 Encourage diet and lifestyle modification Diverticular disease Continue Metamucil DVT prophylaxis: Xarelto per primary Dispo: Per primary, likely home tomorrow Full code PCP: Margaux Patient was seen and examined in collaboration with, Dr. Freed, please see addendum Thank you for this consultation. We will follow the patient with you during their hospital stay. You can reach a member of the [facility] Hospitalist Team 01/05 via hospitalist role on tiger text. Supervising Physician Co-Signing Physician Notes 62-year-old male with PMH of HLD, NATAN on CPAP, chronic low back pain, bilateral SNHL is a medical management consult after elective left total knee arthroplasty by Dr. Cavanaugh on 06/16/22. Patient was sitting up in bed, eating his dinner, comfortable, reported pain under control, denies abdominal discomfort or belly distention, has not moved gas, denies any fever or acute disease in the last 1 week. Pain management/PT OT/DVT prophylaxis per primary team. Resume home meds as and when appropriate. Upon examination: GENERAL: Alert and oriented x3. NAD, on RA. Obesity class III HEENT: No pallor, no icterus. Pupils equal, round and reactive to light. Oral mucosa moist. NECK: No JVD, no neck masses. HEART: S1 and S2 heard. Regular rate and rhythm. No murmur, no gallop. RESPIRATORY SYSTEM: Normal AP diameter. No accessory muscle use. No wheezing, no crackles. ABDOMEN: Soft, bowel sounds present, nontender, no distention. CENTRAL NERVOUS SYSTEM: No facial droop. Speech is clear. Obeys simple commands. Moves extremities. EXTREMITIES: No edema, no erythema seen. Left knee dressing without soakage, Hemovac with minimal serosanguineous collection noted. Distal neurovascular status normal. I have seen and examined the patient and have discussed the case with the provider above. I agree with the assessment and plan as stated. History of Present Illness Requesting Physician: post op med management Reason for Consultation: post op med management Attending Physician: Alfredito Cavanaugh MD History of Present Illness This is a 62-year-old male who has significant past medical history of HLD, NATAN on CPAP, chronic low back pain, bilateral sensorineural hearing loss who presents for elective left total knee arthroplasty by Dr. Cavanaugh. He tolerated the procedure well. His is at bedside. Currently feels well and states he starting to regain feeling to his legs. He had his right knee replaced back in 2019 and it was life-changing. He is hoping his left knee replacement recovery goes just as well. He denies any fever, chills, sweats, lightheadedness, dizziness, chest pain, shortness of breath, cough, URI symptoms, nausea, vomiting, abdominal pain, diarrhea, change in bowel or urinary habits. He takes Metamucil daily to help with routine bowel movements. 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 He has had no further issues with this. He also has history of sleep apnea treated with CPAP. He does not take any prescription medications. Allergies Allergy/AdvReac Type Severity Reaction Status Date / Time No Known Allergies Allergy Unknown Verified 06/16/22 09:05 Home Medications Medication Instructions Recorded Confirmed Type glucosamine 750 [id number] 2 tab PO QAM 12/14/18 06/16/22 History no1 644 mg-C 30 mg-lisha 1 mg tablet (Osteo Bi-Flex Triple Strength) lactobacillus combination no.4 3 1 tab PO QAM 12/14/18 06/16/22 History billion cell capsule (Probiotic) omega 3,6,9 combination no.7 92 mg 2 tab PO QAM 12/14/18 06/16/22 History (43 mg-22 [id number]) chew tablet psyllium husk 3.4 gram/5.4 gram 1 tbsp PO QAM 12/14/18 06/16/22 History oral powder (Metamucil) valacyclovir 1 gram tablet 1,000 mg PO BID PRN Cold Sores 12/14/18 06/16/22 History (Valtrex) celecoxib 200 mg capsule (Celebrex) 100 mg PO QAM 09/09/20 06/16/22 History acetaminophen 500 mg tablet 1,000 mg PO Q8 14 days #84 tabs 06/16/22 Rx (Tylenol Extra Strength) Patient History Medical History (Updated 06/16/22 @ 17:23 by Grace Bond PA-C) Diverticular disease Gout Morbid obesity with BMI of 45.0-49.9, adult Osteoarthritis Sleep apnea CPAP (compliant) Surgical History History of arthroplasty of right knee Right TKA (01/02/19): SAB at L3/4 x1 attempt + PNB at [facility]. No issue noted per post-op anesthesia progress note. History of arthroscopy R/L knees History of bowel resection Partial bowel/bladder resection (diverticulitis/fistula) History of cholecystectomy History of colonoscopy History of ERCP History of repair of rotator cuff Left History of tooth extraction WTE Family History Father Family history of diabetes mellitus Sister Family history of reaction to anesthesia difficulty waking Social History Smoking Status: Current some day smoker Second Hand Exposure: No; Do You Dip or Chew Tobacco: No; Tobacco Cessation Education Requested by Patient: No Hx Alcohol Use: Yes Alcohol type: beer, wine and hard liquor Hx Substance Use: No Preferred Language: [place] Communication Ability: Effective Butcher'S Assistant Required: No Beliefs That Will Affect Care: None marital status: Current Living Situation: Spouse Other Information That Helps Us Care for You: No Feels Safe at Home: Yes Safety Concerns: Feels Safe At This Time Assistive Devices: CPAP and Glasses Review of Systems Review of Systems: All systems reviewed & are unremarkable except as noted in HPI & below Physical Exam Physical Exam: Constitutional: WD/WN, vitals as above, NAD, sitting up in bed, pleasant, conversing easily Head: Normocephalic, Atraumatic Eyes: PERRL, conjunctivae normal, anicteric sclerae ENMT: external ear and nose normal, oropharynx normal Neck: trachea midline, no thyromegaly normal visual inspection Respiratory: normal respiratory effort, lungs clear to auscultation, no wheeze, rales, rhonchi. Normal insp/exp effort, no accessory muscle use Cardiovascular: RRR, no murmur, no edema Vessels: no JVD or carotid bruit Chest: normal inspection of chest Abdomen: Obese abdomen, normal bowel sounds, soft, nontender, no hepatosplenomegaly Musculoskeletal: no cyanosis or clubbing, extremities upper full range of motion, left lower extremity dressing CDI, Hemovac in place, NVI distally Skin: no rashes, warm and dry normal turgor Neurologic: PERRL, EOMI, accommodation nl, no face palsy, no dysarthria CN's II-XI intact bilaterally and moves all extremities Psychiatric: A+Ox3, euthymic affect Lymphatic: no cervical or axillary lymphadenopathy : deferred Results & Data ([facility]) Vital Signs (Past 12 Hours) Vital Signs Temp Pulse Pulse Pulse Resp BP Pulse Ox 06/16/22 16:34 36.8 C 80 17 94/59 L 96 06/16/22 15:36 36.7 C 82 17 104/68 94 06/16/22 15:14 06/16/22 15:05 36.8 C 74 16 102/63 94 06/16/22 14:00 36.9 C 74 16 103/65 93 06/16/22 14:25 36.3 C L 72 19 112/62 93 06/16/22 14:05 81 17 104/59 L 94 06/16/22 13:58 36.2 C L 77 17 116/75 93 06/16/22 14:15 76 18 107/64 93 06/16/22 09:09 36.9 C 83 18 109/61 98 O2 Del Method 06/16/22 16:34 Room Air 06/16/22 15:36 Room Air 06/16/22 15:14 Room Air 06/16/22 15:05 Room Air 06/16/22 14:00 Room Air 06/16/22 14:25 Room Air 06/16/22 14:05 Room Air 06/16/22 13:58 Room Air 06/16/22 14:15 Room Air 06/16/22 09:09 Room Air Laboratory Results Preop labs from 05/27/2022 BUN 14, creatinine 1.79, urinalysis negative, SARS-CoV-2 negative CBC from 05/16/2022 revealed H&H 16.2 and 48.0, WBC 11.0, platelet 232 Hemoglobin A1c 5.6 Diagnostic Findings Knee X-Ray 06/16/22 14:00 XR knee LT 1 or 2V routine HISTORY: 62 years-old Male Surgical Post Op [knee total joint arthroplasty COMPARISON: None TECHNIQUE: 2 views of the left knee FINDINGS: Total joint arthroplasty with patellar resurfacing. Anterior midline skin johanna are noted along with expected postoperative soft tissue swelling and deep tissue air with surgical drainage catheter. No acute fracture, alignment or unexpected opaque foreign body. IMPRESSION: Total joint arthroplasty with expected postoperative changes. ACT 112: Negative or not required by law. The above report was generated using voice recognition software. It may contain grammatical, syntax or spelling errors. Electronically signed by: Pedro Marin M.D. 06/16/2022 2:19 PM CXR: 05/27/22 IMPRESSION: No acute process. Medications Administered Current Inpatient Medications Acetaminophen (Acetaminophen 500 Mg Tab) 1,000 mg PO Q8 KRAIG Stop: 07/16/22 14:45 Last Admin: 06/16/22 15:00 Dose: 1,000 mg Bisacodyl (Bisacodyl 10 Mg Supp) 10 mg OH DAILY PRN PRN Reason: Constipation Stop: 07/16/22 14:45 Celecoxib (Celecoxib 100 Mg Cap) 100 mg PO QAM KRAIG Stop: 07/17/22 08:59 Docusate Sodium (Docusate Sodium 100 Mg Cap) 100 mg PO BID KRAIG Stop: 07/16/22 20:59 Hydromorphone HCl (Hydromorphone Inj 0.5 Mg/0.5 Ml Syr) 0.5 mg IV Q4H PRN PRN Reason: Pain or Pre PT Stop: 06/30/22 14:45 Cefazolin Sodium (Ancef 2000mg) 2,000 mg in 15 mls @ 3.75 mls/min IV Q8H KRAIG; Protocol Stop: 06/17/22 04:03 Sodium Chloride (Nss 1000ml) 1,000 mls @ 100 mls/hr IV .Q10H KRAIG Stop: 06/17/22 06:00 Last Admin: 06/16/22 15:00 Dose: 100 mls/hr Lactobacillus Acidophilus (Advanced Probiotic 1250 Mg Capsule) 2 cap PO QAM KRAIG Stop: 07/17/22 08:59 Magnesium Hydroxide (Magnesium Hydroxide Susp 30 Ml Udc) 30 ml PO Q6H PRN PRN Reason: Constipation Stop: 07/16/22 14:45 Metoclopramide HCl (Metoclopramide Hcl Inj 5 Mg/Ml 2 Ml Vial) 10 mg IV Q6H PRN PRN Reason: Nausea And Vomiting Stop: 07/16/22 14:45 Multivitamins (Multivitamin Tab) 1 tab PO QAM [facility] Stop: 07/17/22 08:59 Naloxone HCl (Naloxone Hcl 0.4 Mg/1 Ml Vial/Carp) 0.1 mg IV Q5M PRN PRN Reason: Oversedation/Resp Depression Stop: 07/16/22 14:45 Ondansetron HCl (Ondansetron Inj 2 Mg/Ml 2 Ml Vial) 4 mg IV Q6H PRN PRN Reason: Nausea And Vomiting Stop: 07/16/22 14:45 Oxycodone HCl (Oxycodone Hcl Ir 5 Mg Tab (Immediate Release)) 5 - 10 mg PO Q4H PRN PRN Reason: Pain or Pre PT Stop: 06/30/22 14:45 Psyllium Hydrophilic Mucilloid (Psyllium Or Guar Gum Fiber Powder Packet) 1 pkt PO QAM [facility] Stop: 07/17/22 08:59 Rivaroxaban (Rivaroxaban 10 Mg Tablet) 10 mg PO DAILY KRAIG Stop: 07/17/22 08:59 Sennosides (Senna 8.6 Mg Tab) 17.2 mg PO HS KRAIG Stop: 07/16/22 20:59 Tamsulosin HCl (Tamsulosin Hcl 0.4 Mg Cap) 0.4 mg PO QAM PRN PRN Reason: UNABLE to void Stop: 07/16/22 14:45 ECG Rate (beats per minute): 77 Rhythm: normal sinus
[2022-06-16] MEDS: DOCUSATE SODIUM 100 MG CAP PO SCH (20:36)
[2022-06-16] MEDS: ceFAZolin 2000MG 2,000 MG/15 ML SYR IV SCH (20:36)
[2022-06-16] MEDS ORDERED: SENNA 8.6 MG TAB PO SCH (21:00)
[2022-06-16] MEDS: oxyCODONE HCL IR 5 MG TAB (IMMEDIATE RELEASE) PO PRN (22:26)
[2022-06-17] MEDS: SODIUM CHLORIDE 0.9% 1000ML 1,000 ML IV SCH (01:19)
[2022-06-17] MEDS: ceFAZolin 2000MG 2,000 MG/15 ML SYR IV SCH (04:46)
[2022-06-17] MEDS: oxyCODONE HCL IR 5 MG TAB (IMMEDIATE RELEASE) PO PRN ×2 (04:50→09:40)
[2022-06-17] MEDS: ACETAMINOPHEN 500 MG TAB PO SCH (05:44)
[2022-06-17 05:55] LABS: Hematocrit (blood only) 37.3 % (40.1-51.0); Hemoglobin 12.8 g/dl (14.0-18.0); Mean Corpuscular Hemoglobin 32.2 pg (25.0-34.0); Mean Corpuscular Hgb Conc 34.3 g/dL (32.0-36.0); Platelet Count 190 K/uL (130-400); RDW Coefficient of Variation 12.6 % (11.5-14.5); RDW Standard Deviation 43.2 fL (36.4-46.3); Red Blood Count 3.97 M/uL (4.63-6.08); White Blood Count 18.94 K/ul (4.8-10.8)
[2022-06-17 06:15] LABS: BUN Creatinine Ratio 17.5 (10-20); Calcium 8.6 mg/dl (8.5-10.1); Creatinine Clr Calc Pharmacy 155.2 ml/min; Est GFR (African American) 112.5 ml/min; Est GFR (Non-African American) 97.1 ml/min; Potassium 4.2 mmol/L (3.5-5.1)
[2022-06-17] MEDS ORDERED: CELECOXIB 100 MG CAP PO SCH (09:00)
[2022-06-17] MEDS ORDERED: RIVAROXABAN 10 MG TABLET PO SCH (09:00)
[2022-06-17] MEDS ORDERED: MULTIVITAMIN TAB PO SCH (09:00)
[2022-06-17] MEDS ORDERED: PSYLLIUM or GUAR GUM FIBER POWDER PACKET PO SCH (09:00)
[2022-06-17] MEDS ORDERED: ADVANCED PROBIOTIC 1250 MG CAPSULE PO SCH (09:00)
[2022-06-17] MEDS: DOCUSATE SODIUM 100 MG CAP PO SCH (09:38)
--- NOTE | 2022-06-17 09:38 | Orthopedic Progress Note ---
Date of Service June 17, 2022 Assessment & Plan (1) Primary osteoarthritis of left knee: Plan: Postop day 1 status post left total knee arthroplasty. Leukocytosis-patient remaining asymptomatic. Vital signs stable. Likely secondary to surgical stress and/or preoperative steroids. PT/OT protocols. Weightbearing as tolerated. DVT prophylaxis-Xarelto p.o. daily, SCDs, JANICE bustillo. Pain management as written. DC planning-discussing plans with patient and Dr. Cavanaugh. With patient's increase in his drainage, possibilities include staying another night here to monitor his drainage or possible discharge with plans for his who is an SKID WORKER to remove the drain at home. This has been discussed with her and she states she is very capable of doing that. We will await Dr. Cavanaugh's input Admission and Anticipated Discharge Date Admission Date: June 16, 2022 Subjective Postop day 1 Patient sitting up in bed awake and alert. No complaints this morning. Pain is controlled. Denies shortness of breath, chest pain, lightheadedness. He is he has been up ambulating in the hallway. Physical Exam Physical Exam: Dressings are clean, dry, and intact. Calves are soft and nontender. Neurovascular is intact. Toes are mobile. He has good dorsiflexion and plantarflexion of the left foot. He had a noted increase in his drainage from his Hemovac. 675 mL from the previous shift. Results & Data ([facility]) Vital Signs (Past 12 Hours) Vital Signs Temp Pulse Resp BP Pulse Ox O2 Del Method 06/17/22 07:46 36.7 C 68 17 130/78 97 Room Air 06/17/22 02:26 36.5 C 68 16 102/67 95 CPAP 06/16/22 21:56 36.8 C 84 18 113/68 95 Room Air Laboratory Results Laboratory Results WBC 18.94 K/ul (4.8-10.8) H 06/17/22 05:45 RBC 3.97 M/uL (4.63-6.08) L 06/17/22 05:45 Hgb 12.8 g/dl (14.0-18.0) L 06/17/22 05:45 Hct 37.3 % (40.1-51.0) L 06/17/22 05:45 MCV 94.0 fL (80.0-100.0) 06/17/22 05:45 MCH 32.2 pg (25.0-34.0) 06/17/22 05:45 MCHC 34.3 g/dL (32.0-36.0) 06/17/22 05:45 RDW Std Deviation 43.2 fL (36.4-46.3) 06/17/22 05:45 RDW Coeff of Mattie 12.6 % (11.5-14.5) 06/17/22 05:45 Plt Count 190 K/uL (130-400) 06/17/22 05:45 MPV 9.0 fL (9.4-12.4) L 06/17/22 05:45 Sodium 136 mmol/L (136-145) 06/17/22 05:45 Potassium 4.2 mmol/L (3.5-5.1) 06/17/22 05:45 Chloride 107 mmol/L (98-107) 06/17/22 05:45 Carbon Dioxide 24 mmol/L (21-32) 06/17/22 05:45 Anion Gap 5 (3-11) 06/17/22 05:45 BUN 14 mg/dl (6-23) 06/17/22 05:45 Creatinine 0.80 mg/dl (0.6-1.4) 06/17/22 05:45 Est Cr Clr Drug Dosing 155.2 ml/min 06/17/22 05:45 Est GFR ( Amer) 112.5 ml/min 06/17/22 05:45 Est GFR (Non-Af Amer) 97.1 ml/min 06/17/22 05:45 BUN/Creatinine Ratio 17.5 (10-20) 06/17/22 05:45 Glucose 135 mg/dl (70-99(Fasting)) H 06/17/22 05:45 Calcium 8.6 mg/dl (8.5-10.1) 06/17/22 05:45 SARS-CoV-2, RNA, NAAT NEGATIVE (NEGATIVE) 06/16/22 08:45 Impressions Knee X-Ray 06/16/22 14:00 XR knee LT 1 or 2V routine HISTORY: 62 years-old Male Surgical Post Op [knee total joint arthroplasty COMPARISON: None TECHNIQUE: 2 views of the left knee FINDINGS: Total joint arthroplasty with patellar resurfacing. Anterior midline skin johanna are noted along with expected postoperative soft tissue swelling and deep tissue air with surgical drainage catheter. No acute fracture, alignment or unexpected opaque foreign body. IMPRESSION: Total joint arthroplasty with expected postoperative changes. ACT 112: Negative or not required by law. The above report was generated using voice recognition software. It may contain grammatical, syntax or spelling errors. Electronically signed by: Pedro Marin M.D. 06/16/2022 2:19 PM
--- NOTE | 2022-06-17 12:48 | Hospitalist Progress Note ---
Date of Service June 17, 2022 Assessment & Plan (1) Primary osteoarthritis of left knee: (2) Sleep apnea: (3) Morbid obesity with BMI of 45.0-49.9, adult: Plan This is a 62-year-old male who has significant past medical history of HLD, NATAN on CPAP, chronic low back pain, bilateral sensorineural hearing loss who presents for elective left total knee arthroplasty by Dr. Cavanaugh. Primary OADJD of L knee s/p L TKA by DR. Cavanaugh, POD #1 ebl 5ml tolerated procedure well Pain/wound management per orthopedics Activity and therapy as prescribed by Ortho Encourage incentive spirometry Monitor hemoglobin, preop 16.2 --> 12.8 today Ortho tentatively planning for discharge this afternoon, patient will be discharged with drain in place. who is an GLOBAL LOGISTICS MANAGER will provide care and removal. Leukocytosis WBC 18 K, likely due to stress/perioperative steroid use Patient afebrile, no signs of infection NATAN CPAP at bedtime Morbid obesity, BMI 48.7 Encourage diet and lifestyle modification Diverticular disease Continue Metamucil DVT prophylaxis: Xarelto per primary Admission and Anticipated Discharge Date Admission Date: June 16, 2022 Supervising Physician Co-Signing Physician Notes Pt was seen and examined. Agreed with Victoria FORD exam, assessment and plan. S/P day #1 L TKA performed by DR. Cavanaugh. No postop complication. Continue pain control. Hgb 12.8 today. Continue incentive spirometry. Continue PT/OT eval. fall precaution. MD рИина Subjective Follow-up for medical management, s/p left TKA Patient seen and examined. No acute distress, sitting up in bed. Patient offers no complaints. Pain well controlled. Denies chest pain and shortness of breath. No abdominal pain or nausea. Review of Systems Review of Systems: ROS per HPI, all other systems reviewed and negative Physical Exam Constitutional: WD/WN, vitals as above + obese Respiratory: normal respiratory effort, lungs clear to auscultation Cardiovascular: Rate/Rhythm: regular rate and regular rhythm Vessels: normal peripheral pulses Extremities: no edema Gastrointestinal (Abdomen): Percussion/Palpation: abdomen soft; abdomen nontender Musculoskeletal: S/p left knee surgery, dressing CDI, drain in place draining bloody drainage Skin: no rashes, warm and dry Neurologic: no focal motor deficits Psychiatric: A+Ox3, euthymic affect Results & Data Results & Data ([facility]) Vital Signs (Past 12 Hours) Vital Signs Temp Pulse Resp BP Pulse Ox O2 Del Method 06/17/22 09:00 Room Air 06/17/22 07:46 36.7 C 68 17 130/78 97 Room Air 06/17/22 02:26 36.5 C 68 16 102/67 95 CPAP Laboratory Results Short CBC 06/17/22 Range/Units 05:45 WBC 18.94 H (4.8-10.8) K/ul Hgb 12.8 L (14.0-18.0) g/dl Hct 37.3 L (40.1-51.0) % Plt Count 190 (130-400) K/uL BMP 06/17/22 05:45 Sodium 136 Potassium 4.2 Chloride 107 Carbon Dioxide 24 BUN 14 Creatinine 0.80 Glucose 135 H Calcium 8.6
--- NOTE | 2022-06-17 19:35 | Discharge Summary ---
Date of Service June 17, 2022 Admission HPI Per Admitting Provider 62-year-old male with past medical history significant for NATAN, morbid obesity who presents with ongoing left knee pain. He has failed conservative measures. Pain interfering with his daily activities. Would like to proceed with left knee replacement. Patient denies headaches, sweats, fevers, chills, double vision, blurred vision, cough, sore throat, dysphagia, chest pain, sob, wheezing, n/v/d/c, numbness, tingling, fatigue, urinary symptoms, mood disorders. ROS positive for left knee pain and stiffness. Admission Exam Per Admitting Provider Constitutional: well developed and well nourished; no acute distress Eyes: PERRL, conjunctivae normal, anicteric sclerae ENMT: external ear and nose normal, oropharynx normal Neck: trachea midline, no thyromegaly Respiratory: normal respiratory effort, lungs clear to auscultation Cardiovascular: RRR, no murmur, no edema Musculoskeletal: Left knee: Mild effusion. Medial and lateral joint line tenderness. Moderate crepitation. Positive Michael's. Positive anterior drawer. Stable to valgus and varus stress test. Range of motion 0 125 degrees. Skin: no rashes, warm and dry Neurologic: patellar DTR's 2+ bilat, sensation intact Psychiatric: A+Ox3, euthymic affect Principal Diagnosis left knee osteoarthritis Discharge Exam Dressings are clean, dry, and intact. Calves are soft and nontender. Neurovascular is intact. Toes are mobile. He has good dorsiflexion and plantarflexion of the left foot. He had a noted increase in his drainage from his Hemovac. 675 mL from the previous shift. Constitutional well developed and well nourished; no acute distress Discharge Data Allergies Allergy/AdvReac Type Severity Reaction Status Date / Time No Known Allergies Allergy Unknown Verified 06/16/22 09:05 Consultations 06/16/22 16:54 Consult Hospitalist Routine Procedures Performed Operation Date: 06/16/22 11:10 Actual Procedures p Left Total Knee Arthroplasty(Left) - Alfredito Cavanaugh MD Ordered Studies 06/16/22 05:00 US - OR guided needle placemen Routine Hospital Course (1) Primary osteoarthritis of left knee: Postop day 1 status post left total knee arthroplasty. Leukocytosis-patient remaining asymptomatic. Vital signs stable. Likely secondary to surgical stress and/or preoperative steroids. PT/OT protocols. Weightbearing as tolerated. DVT prophylaxis-Xarelto p.o. daily, SCDs, JANICE bustillo. Pain management as written. DC planning-discussing plans with patient and Dr. Cavanaugh. With patient's increase in his drainage, possibilities include staying another night here to monitor his drainage or possible discharge with plans for his who is an DIRECTORY CARRIER to remove the drain at home. This has been discussed with her and she states she is very capable of doing that. We will await Dr. Cavanaugh's input Lab Results 06/16/22 06/17/22 06/17/22 Range/Units 08:45 05:45 05:45 WBC 18.94 H (4.8-10.8) K/ul RBC 3.97 L (4.63-6.08) M/uL Hgb 12.8 L (14.0-18.0) g/dl Hct 37.3 L (40.1-51.0) % MCV 94.0 (80.0-100.0) fL MCH 32.2 (25.0-34.0) pg MCHC 34.3 (32.0-36.0) g/dL RDW Std Deviation 43.2 (36.4-46.3) fL RDW Coeff of Mattie 12.6 (11.5-14.5) % Plt Count 190 (130-400) K/uL MPV 9.0 L (9.4-12.4) fL Sodium 136 (136-145) mmol/L Potassium 4.2 (3.5-5.1) mmol/L Chloride 107 (98-107) mmol/L Carbon Dioxide 24 (21-32) mmol/L Anion Gap 5 (3-11) BUN 14 (6-23) mg/dl Creatinine 0.80 (0.6-1.4) mg/dl Est Cr Clr Drug Dosing 155.2 ml/min Est GFR ( Amer) 112.5 ml/min Est GFR (Non-Af Amer) 97.1 ml/min BUN/Creatinine Ratio 17.5 (10-20) Glucose 135 H (70-99(Fasting)) mg/dl Calcium 8.6 (8.5-10.1) mg/dl SARS-CoV-2, RNA, NAAT NEGATIVE (NEGATIVE) Total Time Total Time Spent Total Time Spent (In Minutes): 20 Discharge Plan Discharge Items Patient Disposition: Home - Self-Care Reason For Visit: Left knee osteoarthritis Discharge Diagnosis: Left knee osteoarthritis Activity: Per Instructions section Weightbearing: Left weightbearing Weightbearing Comment: As tolerated with walker Non-emergency contact: Surgeon Call non-emergency contact if: you have any medication questions, your temperature is above 101.5, your wound has increased redness and your wound has increased drainage Follow-up/Referrals: Jason Damico MD [Primary Care Provider] - Alfredito Cavanaugh MD [Surgeon] - (Follow-up with Dr. Olson in 2 weeks from the day of your surgery for your first postoperative visit.) Diet: Regular Addtl Attending Provider Instructions: Discontinue your Jeff wrap/cotton roll dressing and move Hemovac drain by noon tomorrow. Please call with any questions. ACTIVITY RECOMMENDATIONS: SELF CARE INSTRUCTIONS AFTER TOTAL KNEE REPLACEMENT A. You may need to continue a physical therapy program after discharge from the hospital. There are several options available to you. Your doctor will assist you in selecting the best one for you. 1. An out-patient facility 2 to 3 times a week for therapy or home therapy. 2. Continue working on all exercises taught to you in the hospital. Your goals should be to increase bending of your knee to 90 degrees and beyond and to fully straighten your knee. B. You may progress at your own pace from walking with a walker or crutches to a cane; then to no assistive devices. C. Make walking a part of your daily routine. Be up as much as comfortable with rest periods throughout the day. Rest with leg elevation is very important. Use the ice wrap frequently for the first 3-4 weeks. D. There are no restrictions on activities. You may ride in a car, shop, participate in concession manager and all social activities. E. Wear the long elastic stockings (JANICE hose) 20 hours a day for 2 weeks after surgery. They can be removed several times a day for laundering and for a bath. F. You may shower, no tub baths until cleared by your doctor. SPECIAL CARE INSTRUCTIONS: VERY IMPORTANT TO READ AND REVIEW A. There are a few signs you need to watch for after you are home. Call [facility] if you notice any of the followin. Increased severe knee pain. Some pain is expected especially when you exercise. 2. Increased swelling in your leg or knee; pain or swelling of the calf mus suzie in either lower leg. 3. Any fluid drainage from the incision. 4. Shortness of breath or chest pain. B. Please call [facility] at if you have any concerns or questions about your operation or recovery. The doctor or his nurse will return your call promptly. C. You must take antibiotics before dental work, bladder, bowel or other surgery. Your doctor will provide you with a permanent care to carry describing this precaution. IMPORTANT: * REMEMBER TO TAKE ASPIRIN, 81 MG, TWICE DAILY FOR 4 WEEKS UNLESS OTHERWISE DIRECTED. THIS IS YOUR BLOOD THINNER. * HIGH RISK PATIENTS MAY BE PRESCRIBED A STRONGER BLOOD THINNER. THIS WILL BE PROVIDED AT DISCHARGE. * CALL IF INCREASED PAIN, REDNESS, DRAINAGE OR FEVER GREATER THAT 101. * WEAR JANICE HOSE 20 HOURS PER DAY FOR 2 WEEKS. * PEDRITO Dressing - This is a large suction dressing covering your incision. This will help pull any excess drainage from the wound and allow your incision to heal properly. You may shower with this if you can keep the unit outside of the shower. If any bleeding or leakage is noted please call your doctor's office. This will remain on your incision for 7 days and then should be removed. This can be done yourself or by the home nursing staff if applicable. The entire unit is disposable once removed. Once removed, keep incision clean and dry. If redness or drainage is noted, please call your surgeon. . FOLLOW UP VISIT: If appointment is not already scheduled: Please call [facility] to make a follow-up appointment for 2 weeks after your surgery at . Stand-Alone Forms: My [employer], Opioid Pain Management, Smoking Cessation Medications and DC Order Prescriptions: New acetaminophen [Tylenol Extra Strength] 500 mg Tablet 1,000 mg PO Q8 14 Days Qty: 84 0RF Xarelto 10 mg Tablet 10 mg PO DAILY 30 Days Qty: 30 0RF polyethylene glycol 3350 [Miralax] 17 gram powder in packet 17 g PO DAILY PRN (Reason: constipation) Qty: 5 0RF oxycodone 5 mg tablet 5 mg PO Q4H MDD 6 PRN (Reason: pain) Qty: 30 0RF Continued Osteo Bi-Flex Triple Strength 750 mg-644 mg- 30 mg-1 mg Tablet 2 tab PO QAM Metamucil 3.4 gram/5.4 gram Powder 1 tbsp PO QAM valacyclovir [Valtrex] 1 gram Tablet 1,000 mg PO BID PRN (Reason: Cold Sores) Probiotic 3 billion cell Capsule 1 tab PO QAM celecoxib [Celebrex] 200 mg Capsule 100 mg PO QAM Discontinued omega 3,6,9 combination no.7 92 mg (43 mg-22 [id number]) Tablet,Chewable 2 tab PO QAM Discharge Orders: Discharge Order (Routine); Ordered 06/17/22 Ordered By: Wes Arriaga/Other Patient Handouts: DVT Post Op Prevention Admission Data Admit Date/Time: 06/16/22 14:00 Attending Provider: Alfredito Cavanaugh Admit Provider: Alfredito Cavanaugh Primary Care Provider: Jason Damico Other Providers: Jonelle Cook ; Josiah Gifford Other Interventions: Discharge Summary Assessment (RN) Last Done: 06/17/22 12:20
== END 2022-06-17 13:19 | disposition home or self-care (01) ==
LOC: ASU 08:37 → 3E 08:37